=== PATIENT | female | born 1980 | race Caucasian/White ===

== ENCOUNTER 2016-05-18 08:08 | Emergency (ER) | payer MEDICARE, OTHER | END 2016-05-18 08:40 | disposition home or self-care (01) | LOC: FER 08:08 | DX: T78.40XA Allergy, unspecified, initial encounter (principal); Z88.5 Allergy status to narcotic agent; Z88.8 Allergy status to other drugs, medicaments and biological substances | CPT/HCPCS: 73630; 99283; 99284 ==

== ENCOUNTER 2020-12-11 11:02 | Emergency (ER) | payer MEDICARE ==
[~2020-12-11 11:02] MED LIST: ANTIVERT25 MG PO; ATARAX25 MG PO; ATENOLOL25 MG PO; CELEXA20 MG PO; COZAAR50 MG PO; ELAVIL25 MG PO; FLEXERIL10 MG PO; K-DUR20 MEQ PO; MACROBID100 MG PO; METFORMIN HCL500 MG PO; PRILOSEC20 MG PO; ZANTAC150 MG PO
== END 2020-12-11 16:38 | disposition home or self-care (01) ==
LOC: FER 11:02
DX: G89.29 Other chronic pain (principal); M54.2 Cervicalgia; M25.511 Pain in right shoulder; M62.838 Other muscle spasm; I10 Essential (primary) hypertension; Z88.8 Allergy status to other drugs, medicaments and biological substances; Z88.6 Allergy status to analgesic agent; Z88.1 Allergy status to other antibiotic agents; Z88.2 Allergy status to sulfonamides
CPT/HCPCS: 96372; J1100; J1885

== ENCOUNTER 2021-02-23 13:04 | Emergency (ER) | payer MEDICARE | END 2021-02-23 16:07 | disposition home or self-care (01) | LOC: FER 13:04 | DX: M25.462 Effusion, left knee (principal); E11.9 Type 2 diabetes mellitus without complications; I10 Essential (primary) hypertension; Z88.1 Allergy status to other antibiotic agents; Z88.5 Allergy status to narcotic agent; Z88.8 Allergy status to other drugs, medicaments and biological substances; X50.1XXA Overexertion from prolonged static or awkward postures, initial encounter | CPT/HCPCS: 73564 ==

== ENCOUNTER 2021-03-01 17:17 | Emergency (ER) | payer MEDICARE ==
[2021-03-01] MEDS ORDERED: OXY-IR 5MG5 MG PO (21:08)
== END 2021-03-01 21:35 | disposition home or self-care (01) ==
LOC: FER 17:17
DX: S52.572A Other intraarticular fracture of lower end of left radius, initial encounter for closed fracture (principal); I10 Essential (primary) hypertension; Z88.1 Allergy status to other antibiotic agents; Z88.5 Allergy status to narcotic agent; Z88.8 Allergy status to other drugs, medicaments and biological substances; V00.131A Fall from skateboard, initial encounter; Y93.51 Activity, roller skating (inline) and skateboarding; Y92.009 Unspecified place in unspecified non-institutional (private) residence as the place of occurrence of the external cause
CPT/HCPCS: 73090; 73110

== ENCOUNTER 2021-09-07 11:15 | Emergency (ER) | payer MEDICARE ==
[~2021-09-07 11:15] MED LIST changes: +OXY-IR 5MG5 MG PO
[2021-09-07 11:49] LABS: BASOPHIL 0.7 % (0-2); HCT 40.5 % (37.0-47.0); HGB 14.2 g/dl (12.5-16.0); LYMPHOCYTE 30.3 % (15-48); MCH 30.5 pg (25.0-31.0); MCHC 35.1 g/dL (32.0-36.0); MCV 87.1 fL (78.0-100.0); MONOCYTE 5.8 % (0-12); MPV 10.8 fL (6.0-9.5); NEUTROPHIL 60.9 % (41-80); NRBC 0; PLT 276 K/uL (150-400); RBC 4.65 M/uL (4.20-5.40); RDW 12.9 % (11.5-14.0); WBC 9.1 K/uL (4.0-10.5)
[2021-09-07 12:01] LABS: BUN/CREAT RATIO (CALC) 19.4 RATIO; CREATININE 0.62 mg/dL (0.51-0.95); POTASSIUM 3.8 mmol/L (3.5-5.1)
[2021-09-07 12:12] LABS: BILIRUBIN NEGATIVE (NEGATIVE); BLOOD NEGATIVE Ery/uL (NEGATIVE); CLARITY CLEAR (CLEAR); COLOR YELLOW (YELLOW); GLUCOSE (U) NORMAL (NORMAL); LEUKOCYTES NEGATIVE Leu/uL (NEGATIVE); NITRITE NEGATIVE (NEGATIVE); PROTEIN NEGATIVE (NEGATIVE); SPECIFIC GRAVITY 1.025 (1.001-1.030); UROBILINOGEN 0.2 mg/dL (0.2-1.0)
[2021-09-07] MEDS ORDERED: ANTIVERT25 MG PO (12:39)
[2021-09-07] MEDS ORDERED: ONDANSETRON ODT4 MG PO (12:39)
== END 2021-09-07 12:57 | disposition home or self-care (01) ==
LOC: FER 11:15
PROVIDERS: Emergency Medicine
DX: B34.9 Viral infection, unspecified (principal); R42 Dizziness and giddiness; I10 Essential (primary) hypertension; Z20.822 Contact with and (suspected) exposure to COVID-19; Z28.310 Unvaccinated for COVID-19; Z87.891 Personal history of nicotine dependence; Z88.1 Allergy status to other antibiotic agents; Z88.5 Allergy status to narcotic agent; Z88.8 Allergy status to other drugs, medicaments and biological substances; Z79.899 Other long term (current) drug therapy
CPT/HCPCS: 36415; 80048; 81003; 85025; 93005; J2405; J7030; U0002

== ENCOUNTER 2021-09-18 10:15 | Emergency (ER) | payer OTHER, MEDICARE ==
[~2021-09-18 10:15] MED LIST changes: +ONDANSETRON ODT4 MG PO
[2021-09-18] MEDS ORDERED: AMOX TR-K CLV1 EAC4 PO (13:42)
== END 2021-09-18 13:47 | disposition home or self-care (01) ==
LOC: FER 10:15
DX: S70.311A Abrasion, right thigh, initial encounter (principal); I10 Essential (primary) hypertension; E11.9 Type 2 diabetes mellitus without complications; Z23 Encounter for immunization; Z28.310 Unvaccinated for COVID-19; Z88.5 Allergy status to narcotic agent; Z88.1 Allergy status to other antibiotic agents; Z88.8 Allergy status to other drugs, medicaments and biological substances; W54.0XXA Bitten by dog, initial encounter; Y92.009 Unspecified place in unspecified non-institutional (private) residence as the place of occurrence of the external cause
CPT/HCPCS: 90471; 90715